=== PATIENT | female | born 1945 | race Two or more races ===

== ENCOUNTER 2022-05-13 13:25 | Inpatient (IN) | payer OTHER, MEDICAID ==
[~2022-05-13] VITALS: Ht 152.4 cm; Wt 115.0 kg
[~2022-05-13 13:25] MED LIST: AMLO-496 PO; AMOX500C2 PO; ASPI-543 PO; CARV12.544 PO; CITA-73 PO; CLON0.1T PO; FLUT250M2 INH; FURO20TA3 PO; GABA-339 PO; IBUP800T27 PO; ISOS60TA24 PO; LEVEMIR SC; PANT1INJ3 PO; RANO1000 PO; ROSU40TA PO; TRAM-297 PO
[2022-05-13] MEDS ORDERED: DEXTROSE 50% SYRINGE 50 ML IV ONE (13:47)
[2022-05-13] MEDS ORDERED: DEXTROSE (50%) 50ML SYRG IV ONE ×2 (14:00→19:15)
[2022-05-13 14:22] LABS: Basophils # (auto) 0 10 ^3/uL (0-0.2); Basophils % (auto) 0.4 % (0.0-2.0); Eosinophils # (auto) 0.1 10 ^3/uL (0-0.8); Eosinophils % (auto) 2.1 % (0.0-7.0); Hematocrit 35.1 % (36.0-46.0); Hemoglobin 11.7 g/dL (12.2-16.2); Lymphocytes % (auto) 22.4 % (10.0-50.0); Mean Corpuscular Hemoglobin 30.5 pg (28.0-32.0); Mean Corpuscular Hgb Conc. 33.4 g/dL (32.0-36.0); Mean Corpuscular Volume 91.5 fL (80.0-100.0); Monocytes # (auto) 0.4 10 ^3/uL (0-1.3); Monocytes % (auto) 8.9 % (0.0-12.0); Neutrophils # (auto) 3.1 10 ^3/uL (1.6-8.6); Neutrophils % (auto) 66.2 % (37.0-80.0); Nucleated Red Blood Cells % 0.1 %; Red Blood Cells 3.83 10^6/uL (4.0-5.20); Red Cell Distribution Width 14.1 % (11.8-14.3); White Blood Cell 4.6 10^3/uL (4.4-10.8)
[2022-05-13 14:34] LABS: INR 1.02 (0.9-1.15); Partial Thromboplastin Time 40.6 sec (24.6-33.4)
[2022-05-13 14:36] LABS: Albumin 3.6 g/dL (3.4-5.0); Calcium 8.3 mg/dL (8.5-10.1); Potassium 3.7 mmol/L (3.5-5.1)
[2022-05-13 14:38] LABS: BUN/Creatinine Ratio 6.6
[2022-05-13 14:41] LABS: Bilirubin, Total 0.9 mg/dL (0.2-1.0); Total Protein 7.2 g/dL (6.4-8.2)
[2022-05-13] MEDS ORDERED: LABETALOL HCL 5 MG/ML 4ML SYRINGE IV ONE (16:45)
[2022-05-13] MEDS ORDERED: NITROGLYCERIN 0.4 MG SL TAB SL PRN (18:15)
[2022-05-13] MEDS ORDERED: ONDANSETRON HCL 4 MG/2 ML VIAL IV PRN (18:15)
[2022-05-13] MEDS ORDERED: MORPHINE SULFATE INJ 2 MG/ml SYRG IV PRN (18:15)
[2022-05-13] MEDS ORDERED: DEXTROSE (50%) 50ML SYRG IV PRN (18:15)
[2022-05-13] MEDS ORDERED: HYDROcodone-ACET 5/325MG TAB PO PRN (18:15)
[2022-05-13] MEDS ORDERED: ACETAMINOPHEN 325 MG TAB PO PRN (18:15)
[2022-05-13] MEDS ORDERED: DOCUSATE SOD 100 MG CAP PO PRN (18:15)
[2022-05-13 18:26] LABS: Urine Bacteria FEW /hpf (None Seen); Urine Blood Negative /uL (Negative); Urine Specific Gravity 1.006 (1.001-1.035); Urine WBC 47 /hpf (0 - 5)
[2022-05-13] MEDS ORDERED: MIRT1TAB38 PO (18:26)
[2022-05-13] MEDS ORDERED: CALC1CAP31 PO (18:26)
[2022-05-13] MEDS ORDERED: ATOR-47 PO (18:26)
[2022-05-13] MEDS ORDERED: DEXTROSE 10% 1,000 ML IV ONE (19:15)
[2022-05-13] MEDS ORDERED: ACCU-CHEK COMFORT CURVE STRIP VI SCH (22:00)
[2022-05-13] MEDS: RANOLAZINE ER 500 MG TAB PO SCH (22:00)
[2022-05-13] MEDS: SODIUM CHLOR 0.9% PF (SALINE LOCK) 10ML VIAL/SYR IV SCH (22:00)
[2022-05-13] MEDS ORDERED: ATORVASTATIN 20 MG TAB PO SCH (22:00)
[2022-05-13] MEDS: ACCU-CHEK COMFORT CURVE STRIP VI SCH (22:11)
[2022-05-13] MEDS ORDERED: FERR1TAB17 PO (22:23)
[2022-05-14] MEDS: ACCU-CHEK COMFORT CURVE STRIP VI SCH ×8 (00:14→14:41)
[2022-05-14 05:19] LABS: Basophils # (auto) 0 10 ^3/uL (0-0.2); Basophils % (auto) 0.3 % (0.0-2.0); Eosinophils # (auto) 0.1 10 ^3/uL (0-0.8); Eosinophils % (auto) 2.3 % (0.0-7.0); Hematocrit 31.8 % (36.0-46.0); Lymphocytes # (auto) 1.4 10 ^3/uL (0.4-5.4); Lymphocytes % (auto) 32.3 % (10.0-50.0); Mean Corpuscular Hemoglobin 31.3 pg (28.0-32.0); Mean Corpuscular Hgb Conc. 34.6 g/dL (32.0-36.0); Mean Corpuscular Volume 90.4 fL (80.0-100.0); Monocytes # (auto) 0.4 10 ^3/uL (0-1.3); Monocytes % (auto) 7.9 % (0.0-12.0); Neutrophils # (auto) 2.5 10 ^3/uL (1.6-8.6); Neutrophils % (auto) 57.2 % (37.0-80.0); Nucleated Red Blood Cells % 0.1 %; Red Blood Cells 3.52 10^6/uL (4.0-5.20); White Blood Cell 4.4 10^3/uL (4.4-10.8)
[2022-05-14 05:22] LABS: Calcium 8.4 mg/dL (8.5-10.1); Potassium 3.5 mmol/L (3.5-5.1)
[2022-05-14 05:25] LABS: Albumin 3.1 g/dL (3.4-5.0); BUN/Creatinine Ratio 6.3
[2022-05-14 05:38] LABS: Bilirubin, Total 0.8 mg/dL (0.2-1.0); Total Protein 6.5 g/dL (6.4-8.2)
[2022-05-14] MEDS: SODIUM CHLOR 0.9% PF (SALINE LOCK) 10ML VIAL/SYR IV SCH ×2 (06:00→13:55)
[2022-05-14] MEDS: RANOLAZINE ER 500 MG TAB PO SCH (09:18)
[2022-05-14] MEDS ORDERED: ASPirin-EC 81 mg tab PO SCH (10:00)
[2022-05-14] MEDS ORDERED: MIRTAZAPINE 30 MG TAB PO SCH (10:00)
[2022-05-14] MEDS ORDERED: PANTOPRAZOLE 40 MG/10 ML VIAL INJ IV SCH (10:00)
[2022-05-14] MEDS ORDERED: PATIENTS OWN MEDICATION (Atorvastatin Calcium 1 TAB) PO SCH (10:00)
[2022-05-14] MEDS ORDERED: CALCIFEDIOL 30 MCG PO SCH (10:00)
[2022-05-14] MEDS ORDERED: amLODIPine BESYLATE 5 MG TAB PO SCH (10:00)
[2022-05-14] MEDS ORDERED: CARVEDILOL 12.5 MG TAB PO SCH (10:00)
[2022-05-14 14:58] VITALS: BP 122/47
== END 2022-05-14 14:57 | disposition home or self-care (01) | DRG 637 ==
LOC: ER 13:25 → EDBD 13:25 → EDUNIT# 13:25 → TELE 18:25
PROVIDERS: ADMIT Nurse Practitioner Family; ATTEND Student in an Organized Health Care Education/Training Program
DX: E11.649 Type 2 diabetes mellitus with hypoglycemia without coma (principal); G93.41 Metabolic encephalopathy; I12.0 Hypertensive chronic kidney disease with stage 5 chronic kidney disease or end stage renal disease; K86.1 Other chronic pancreatitis; N18.6 End stage renal disease; E11.22 Type 2 diabetes mellitus with diabetic chronic kidney disease; Z20.822 Contact with and (suspected) exposure to COVID-19; E78.5 Hyperlipidemia, unspecified; I16.0 Hypertensive urgency; I25.10 Atherosclerotic heart disease of native coronary artery without angina pectoris; J45.909 Unspecified asthma, uncomplicated; Z99.2 Dependence on renal dialysis; Z79.4 Long term (current) use of insulin; Z80.0 Family history of malignant neoplasm of digestive organs; Z82.49 Family history of ischemic heart disease and other diseases of the circulatory system; Z95.1 Presence of aortocoronary bypass graft
CPT/HCPCS: 36415; 70450; 71045; 80053; 81001; 82140; 82962; 83036; 83605; 83880; 84484; 85025; 85610; 85730; 87040; 87426; 96374; 99291; C9113; G0378

== ENCOUNTER → 2023-06-13 | Outpatient (CLI) | payer OTHER ==
[~2023-06-13] MED LIST changes: -AMLO-496 PO; -AMOX500C2 PO; +ATOR-47 PO; +CALC1CAP31 PO; +FERR1TAB17 PO; -FLUT250M2 INH; -FURO20TA3 PO; -GABA-339 PO; -IBUP800T27 PO; -ISOS60TA24 PO; +MIRT1TAB38 PO; -PANT1INJ3 PO; -RANO1000 PO; -ROSU40TA PO; -TRAM-297 PO
== END | disposition home or self-care (01) ==
LOC: Rad HDHVI 14:34
PROVIDERS: ATTEND Internal Medicine Cardiovascular Disease
DX: I08.0 Rheumatic disorders of both mitral and aortic valves (principal); I10 Essential (primary) hypertension
CPT/HCPCS: 93306

== ENCOUNTER → 2023-06-15 | Outpatient (CLI) | payer OTHER ==
[~2023-06-15] VITALS: Ht 152.4 cm; Wt 82.6 kg
[~2023-06-15] MED LIST changes: +ADENOSINE 90 MG/30 ML INJ IV ONE
== END | disposition home or self-care (01) ==
LOC: Rad HDHVI 13:46
PROVIDERS: ATTEND Internal Medicine Cardiovascular Disease
DX: I10 Essential (primary) hypertension (principal); E11.9 Type 2 diabetes mellitus without complications; E78.00 Pure hypercholesterolemia, unspecified; I48.91 Unspecified atrial fibrillation; Z95.1 Presence of aortocoronary bypass graft; Z82.49 Family history of ischemic heart disease and other diseases of the circulatory system
CPT/HCPCS: 78452; 93005; 96374; 96375; A9500; J0153